=== PATIENT | male | born 1995 | race Caucasian/White ===

== ENCOUNTER 2019-02-08 21:44 | Emergency (ER) | payer BC, OTHER ==
[~2019-02-08] VITALS: Ht 170.2 cm; Wt 67.5 kg
--- NOTE | 2019-02-08 22:27 | NUR ---
PT UUPDATED POC . AWAITING MD . STABLE NO CURRENT COMPLAINTS
--- NOTE | 2019-02-08 23:03 | NUR ---
MARIELA JORDAN AT BEDSIDE, REQUEST WOUND IRRIGATION AND TRIPLE ANTIBIOTIC AND SIMPLE DRESSING
[2019-02-08] MEDS ORDERED: TETanus/Pertussis (Acell)/Diphther VAC/PF (Tdap-Adult) 0.5ml syringe IM ONE (23:05)
[2019-02-08] MEDS ORDERED: AMOX-580 PO (23:09)
--- NOTE | 2019-02-08 23:19 | NUR ---
[employer] control investigation form filled out and faxed to [facility].
[2019-02-08 23:33] VITALS: BP 142/81
== END 2019-02-08 23:30 | disposition home or self-care (01) ==
LOC: ER 21:45
DX: S81.832A Puncture wound without foreign body, left lower leg, initial encounter (principal); Z79.2 Long term (current) use of antibiotics; W54.0XXA Bitten by dog, initial encounter; Y93.89 Activity, other specified; Y92.89 Other specified places as the place of occurrence of the external cause; Y99.8 Other external cause status
CPT/HCPCS: 90471; 99283